=== PATIENT | female | born 1975 ===

== ENCOUNTER 2017-01-05 15:52 | Emergency (ER) | payer BC, OTHER ==
[2017-01-05 16:17] VITALS: BP 152/90; PULSE 98; RESP 18; TEMP 98.2; O2SAT 99
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
--- NOTE | 2017-01-05 17:47 | CT ---
PROCEDURE: CT HEAD WITHOUT CONTRAST. HISTORY: h/a COMPARISON: None available. TECHNIQUE: Axial computed tomography images were obtained through the head/brain without intravenous contrast. Radiation dose: Total exam DLP = mGy-cm. FINDINGS: HEMORRHAGE: No intracranial hemorrhage. BRAIN: No mass effect or edema. No atrophy or chronic microvascular ischemic changes. VENTRICLES: Unremarkable. No hydrocephalus. CALVARIUM: Unremarkable. PARANASAL SINUSES: Unremarkable as visualized. No significant inflammatory changes. MASTOID AIR CELLS: Unremarkable as visualized. No inflammatory changes. OTHER FINDINGS: None. IMPRESSION: Normal CT of the Head.
== END 2017-01-05 19:10 | disposition home or self-care (01) ==
LOC: H.ER 15:52
DX: R51 Headache (principal)